=== PATIENT | female | born 1950 | race Caucasian/White ===

== ENCOUNTER 2016-11-14 06:56 | Day surgery (SDC) | payer BC ==
[~2016-11-14] VITALS: Ht 170.2 cm; Wt 70.3 kg
[~2016-11-14 06:56] MED LIST: ALENDRONATE SOD35 MG PO; ASCORBIC ACID500 M3 PO; ASPIRIN81 M2 PO; CALCIUM 600 +1 EAC1 PO; FIBER THERAPY0.52 GM PO; FISH OIL 1,0001 EAC7 PO; FOSAMAX70 MG PO; MULTIPLE VITAM1 EACH PO; PERCOCET 5/31 TABLET PO; POTASSIUM-9999 MG PO; PROBIOTIC1 EAC1 PO; STOOL SOFTENER100 M1 PO; VITAMIN B-121000 MCG PO; VITAMIN B12-FO1 EACH PO; VITAMIN E400 UNIT PO; ZYRTEC10 M3 PO
[2016-11-14 07:54] VITALS: BP 111/90
[2016-11-14 14:40] VITALS: BP 111/57
[2016-11-14 19:54] VITALS: BP 99/57
[2016-11-14 23:28] VITALS: BP 110/64
[2016-11-15 03:44] VITALS: BP 124/68
[2016-11-15 07:11] LABS: MCH 30.3 PG (29.0-34.0); MCHC 33.5 G/DL (30.0-36.0); MCV 90.4 FL (83-99); MEAN PLAT.VOLUME 10.4 uM^3 (9.5-12.4); PLATELET COUNT 244 K/uL (156-360); RBC DIS.WIDTH-CV 13.8 % (11.8-14.6); RED BLOOD COUNT 3.76 M/uL (3.80-5.20)
[2016-11-15 07:15] LABS: WHITE BLOOD COUNT 15.2 K/uL (4.1-10.2)
[2016-11-15 07:45] VITALS: BP 109/59
[2016-11-15] MEDS ORDERED: ZOFRAN4 MG PO (08:20)
== END 2016-11-15 11:06 | disposition home or self-care (01) ==
LOC: SDC 06:56 → 2SOUTH 11:00 → 2EAST 14:50
PROVIDERS: Obstetrics & Gynecology
DX: N81.4 Uterovaginal prolapse, unspecified (principal); N81.6 Rectocele; N80.0 Endometriosis of uterus; R01.1 Cardiac murmur, unspecified; M81.0 Age-related osteoporosis without current pathological fracture
CPT/HCPCS: 85027; 88307; G0378; J0690; J1100; J2250; J2270; J2405; J2765; J3010; J7120